=== PATIENT | male | born 1960 | race African-American/Black ===

== ENCOUNTER 2017-09-03 14:24 | Emergency (ER) | payer OTHER ==
[~2017-09-03] VITALS: Ht 180.3 cm; Wt 108.5 kg
[~2017-09-03 14:24] MED LIST: BLOOD PRESSURE MED; Benicar HCT 40/25 PO; Ecotrin PO; FLUID PILL; HYDROCHLOROTH12.5 M3; Lotensin PO; NORVASC2.5 MG PO
[2017-09-03 17:02] VITALS: BP 147/78
== END 2017-09-03 17:03 | disposition home or self-care (01) ==
LOC: EME 14:24
DX: S16.1XXA Strain of muscle, fascia and tendon at neck level, initial encounter (principal); S80.01XA Contusion of right knee, initial encounter; S80.02XA Contusion of left knee, initial encounter; V49.40XA Driver injured in collision with unspecified motor vehicles in traffic accident, initial encounter; Y92.410 Unspecified street and highway as the place of occurrence of the external cause; I10 Essential (primary) hypertension; Z79.82 Long term (current) use of aspirin
CPT/HCPCS: 72040; 73564; 99281; 99283